=== PATIENT | male | born 1955 | race Caucasian/White ===

== ENCOUNTER → 2017-07-30 | Outpatient (CLI) | payer BC ==
--- NOTE | 2017-07-30 17:33 | Diagnostic Imaging Report ---
PROCEDURE: MRI right joint upper extremity without contrast. TECHNIQUE: Multiplanar, multisequence non contrast-enhanced MRI of the right upper extremity was accomplished. INDICATION: Fall. FINDINGS: There is no os acromiale or Hill-Sachs deformity. The acromion has a laterally downsloping configuration. There is also acromioclavicular joint osteoarthritis changes with inferior osteophytes that have a minimal impression upon the myotendinous junction of the supraspinatus. There is a full-thickness tear with tendon retraction in the supraspinatus with retracted stump at about 2.5 cm from the insertion site. The infraspinatus demonstrates tendinosis with mild intrasubstance tear. No retracted or high-grade tear in the infraspinatus. The subscapular tendon demonstrates intrasubstance tear. There is no retracted or full-thickness tear. The long head of biceps tendon demonstrates a longitudinal tear within the bicipital groove. Its more proximal segment is difficult to evaluate on this exam without articular contrast. There is increased signal along the superior labrum suggestive of degeneration or tear. The muscle bulk and signal around the shoulder is preserved. IMPRESSION: 1. Full-thickness tear in the supraspinatus tendon with 2.5 cm of retraction. 2. Longitudinal tear within the long head biceps tendon within the bicipital groove level. More proximally this tendon is not well evaluated. 3. Increased signal in the superior labrum is suggested which could relate to tear or degeneration. 4. Laterally downsloping configuration of the acromion. Dictated by: Dictated on workstation # [id number]
== END ==
LOC: RAD 13:32
PROVIDERS: ATTEND Nurse Practitioner
DX: S46.011A Strain of muscle(s) and tendon(s) of the rotator cuff of right shoulder, initial encounter (principal); S46.111A Strain of muscle, fascia and tendon of long head of biceps, right arm, initial encounter; X58.XXXA Exposure to other specified factors, initial encounter; Y99.8 Other external cause status
CPT/HCPCS: 73221

== ENCOUNTER 2020-01-15 15:50 | Emergency (ER) | payer BC ==
[~2020-01-15] VITALS: Ht 180 cm; Wt 70.8 kg
--- NOTE | 2020-01-15 16:08 | ED EENT ---
History of Present Illness General Chief Complaint: Nasal Problems Stated Complaint: NOSE INJ Source: patient, RN notes reviewed Exam Limitations: no limitations History of Present Illness Date Seen by Provider: Jan 15, 2020 Time Seen by Provider: 16:00 Initial Comments This patient is a 64-year-old male that presents to the emergency department complaining of nasal pain on the bridge of his nose and right wrist pain. Patient states he fell off a horse earlier this morning. Is continuing to have pain and limited use the right wrist. Patient states he did have a nosebleed but does breathe bleeding regularly. But is tender to the bridge of the nose. Concerning possible fracture. We'll do medical evaluation treatment is needed. Timing/Duration: this morning Location: nose Associated Symptoms: No denies symptoms, No change in hearing, No cough, No drooling, No ear drainage, No facial pain/swelling, No fever, No malaise, No nasal congestion/drainage, No poor fluid intake, No poor solids intake, No sinus infection, No sore throat, No tooth pain, No voice change, No other Allergies and Home Medications Allergies Coded Allergies: No Known Drug Allergies (Unverified , 01/15/20) Patient Home Medication List Home Medication List Reviewed: Yes Review of Systems Review of Systems Constitutional: No no symptoms reported; see HPI; No chills, No diaphoresis, No dizziness, No fever, No malaise, No weakness, No weight gain, No weight loss, No other Eyes: Denies No Symptoms Reported, Denies See HPI, Denies Blindness, Denies Blurred Vision, Denies Drainage, Denies Decreased Acuity, Denies Foreign Body Sensation, Denies Inflammation, Denies Pain, Denies Photophobia, Denies Previous Injury, Denies Shadows, Denies Tunnel Vision, Denies Vision Changes, Denies Con tact Lenses, Denies Glasses, Denies Other Ears: Denies No Symptoms Reported, Denies See HPI, Denies Dizziness, Denies Pain, Denies Tinnitus, Denies Bloody Discharge, Denies Clear Discharge, Denies Purulent Discharge, Denies Serosanguinous Discharge, Denies Previous Injury, Denies Other Nose: see HPI, epistaxis, pain Mouth: denies no symptoms reported, denies see HPI, denies clots, denies loose teeth, denies pain, denies swelling, denies bloody discharge, denies clear discharge, denies purulent discharge, denies serosanguinous discharge, denies previous injury, denies other Throat: denies no symptoms reported, denies see HPI, denies pain, denies swelling, denies discharge, denies neck stiffness, denies hoarse, denies aphonia, denies muffled, denies painful swallowing, denies difficulty with fluids, denies previous injury, denies other Respiratory: No no symptoms reported, No see HPI, No cough, No dyspnea on exertion, No hemoptysis, No orthopnea, No phlegm, No short of breath, No stridor, No wheezing, No other Cardiovascular: No no symptoms reported, No see HPI, No chest pain, No edema, No Hx of Intervention, No palpitations, No syncope, No vascular heart diseas, No other Musculoskeletal: No no symptoms reported; see HPI; No back pain, No gout, No joint pain, No joint swelling, No muscle pain, No muscle stiffness, No muscle cramps, No muscle twitching, No muscle weakness, No neck pain; other (right wrist pain) Skin: No no symptoms reported, No see HPI, No change in color, No change in hair/nails, No dryness, No hx of skin cancer, No lesions, No lumps, No pruritus, No rash, No other All Other Systems Reviewed Negative Unless Noted: Yes Past Cceouku-Auspgp-Hfwwvo Hx Patient Social History Recent Foreign Travel: No Contact w/Someone Who Travel: No Physical Exam Vital Signs Vital Signs - First Documented 01/15/20 16:10 Temp 36.8 Pulse 61 Resp 18 B/P (MAP) 126/79 (95) Pulse Ox 100 Height, Weight, BMI Height: '" Weight: lbs. oz. kg; BMI Method: General Appearance: WD/WN, no apparent distress, moderate distress, severe distress, cachetic Neck: non-tender, full range of motion, supple, normal inspection Cardiovascular: normal peripheral pulses, regular rate, rhythm, no edema, no gallop, no JVD, no murmur Respiratory: chest non-tender, lungs clear, normal breath sounds, no respiratory distress, no accessory muscle use Gastrointestinal: normal bowel sounds, non tender, soft, no organomegaly, no pulsatile mass, spleenomegaly Skin: normal color, warm/dry Right wrist has posterior swelling. Decreased range of motion due to pain. Progress/Results/Core Measures Results/Orders My Orders Orders - REENA BISHOP MD Nasal Bones (01/15/20 16:05) Wrist 3 View Right (01/15/20 16:05) Vital Signs/I&O 01/15/20 16:10 Temp 36.8 Pulse 61 Resp 18 B/P (MAP) 126/79 (95) Pulse Ox 100 Progress Progress Note : Time: 16:57 Progress Note I discussed at length with Dr. Rey on-call orthopedic surgeon. We discussed patient's x-rays. Patient will be placed in a sugar tong splint for the right wrist. It fracture. Patient in follow-up with Dr. Rey or Juancarlos Bridges APN here in [place]. Patient also be referred to Dr. Salomon [facility] for nasal bone fracture. Discussed at length with patient about findings. Patient still has some mild bleeding to the naris but patient does not want us to do anything further for his nose. He states he always has nosebleeds. I did discuss with patient about underlying fracture but he states he understands and again declines any nasal packing of the further evaluation of the nose. We discussed at length with patient about his follow-up. Patient states understanding. Patient should keep wrist elevated rest ice and compression. Wear splint as instructed. Follow-up with Dr. Rey or Juancarlos Bridges [facility]N in [place] is needed. Also Dr. Salomon ENT here in [place] for nasal bone fracture. Patient states understanding. Patient per may continue with Tylenol Motrin when necessary for pain and swelling. Patient be given a prescription for hydrocodone for just a couple of days. Patient states understanding is discharged home Departure Impression Primary Impression: Fall Additional Impressions: Nasal bone fracture Distal radius fracture, right Epistaxis Disposition: 01 HOME, SELF-CARE Condition: Stable Departure-Patient Inst. Decision time for Depature: 16:59 Referrals: GEMMA SALOMON MD, KATRINA M MD (PCP/Family) Primary Care Physician GEMMA REY MD Patient Instructions: [facility] NASAL [facility]., Nosebleeds (DC), Nose Fracture (DC), Radius Fracture (DC) Add. Discharge Instructions: We discussed at length with patient about his follow-up. Patient states understanding. Patient should keep wrist elevated rest ice and compression. Wear splint as instructed. Follow-up with Dr. Rey or Juancarlos Bridges [facility] in [place] is needed. Also Dr. Salomon ENT here in [place] for nasal bone fracture. Patient states understanding. Patient per may continue with Tylenol Motrin when necessary for pain and swelling. Patient be given a prescription for hydrocodone for just a couple of days. Patient states understanding is discharged home All discharge instructions reviewed with patient and/or family. Voiced understanding. Scripts Hydrocodone/Acetaminophen (Hydrocodone-Acetamin 5-325 mg) 1 Each Tablet 1 EACH PO 6 hrs PRN for PAIN-MODERATE (5-7), #6 TAB 0 Refills Prov: REENA BISHOP MD 01/15/20 Diclofenac Sodium (Diclofenac Sodium) 75 Mg Tablet. 75 MG PO BID for 10 Days, #20 TAB 0 Refills Prov: REENA BISHOP MD 01/15/20 Diclofenac Sodium (Diclofenac Sodium) 75 Mg Tablet. 75 MG PO BID for 10 Days, #20 TAB 0 Refills Prov: REENA BISHOP MD 01/15/20 REENA BISHOP MD Jan 15, 2020 16:08
[2020-01-15] MEDS ORDERED: ATOR20TA66 (16:10)
[2020-01-15] MEDS ORDERED: CELE-63 (16:10)
[2020-01-15] MEDS ORDERED: LEVO125T6 (16:10)
--- NOTE | 2020-01-15 16:31 | Diagnostic Imaging Report ---
INDICATION: Fall, pain COMPARISON: None available TECHNIQUE: 3 radiographs of the right wrist dated 01/15/2020 FINDINGS: Comminuted recent appearing distal radial fracture is present. Very minimal posterior displacement of a fracture fragment. There is intra-articular extension to the radiocarpal joint. No additional acute fracture or dislocation. No destructive osseous process. Soft tissue swelling is noted about the wrist. No suspicious radiopaque foreign body. IMPRESSION: Acute very minimally displaced distal radial fracture with associated intra-articular extension to the radiocarpal joint as described above. Dictated by: Dictated on workstation # [id number]
--- NOTE | 2020-01-15 16:31 | Diagnostic Imaging Report ---
INDICATION: Fall with injury to nose. EXAMINATION: AP and lateral views of the nasal bones were obtained. FINDINGS: There is a linear lucency with slight angulation of the nasal bones, anteriorly, suspicious for a nondisplaced fracture. No other abnormality is seen. The sinuses are well aerated. IMPRESSION: Nondisplaced slightly angulated fracture of the nasal bones, anteriorly. Dictated by: Dictated on workstation # [id number]
--- OUTSIDE RECORDS SUMMARY | 2020-01-15 16:55 | XMS REPORT | Continuity of Care Document ---
Author Organization Unknown Address Unknown Phone Unavailable Allergies There is no data. Medications There is no data. Problems Date Dx Coded Attending Type Code Diagnosis Diagnosed By 08/22/2017 LOGAN VILLAREAL Ot S46.011A STRAIN OF MUSC/TEND THE ROTATOR CUFF OF 08/22/2017 LOGAN VILLAREAL Ot S46.111A STRAIN OF MUSC/FASC/TEND LONG HD BICEP, 08/22/2017 LOGAN VILLAREAL Ot X58.XXXA EXPOSURE TO OTHER SPECIFIED FACTORS, INI 08/22/2017 LOGAN VILLAREAL Ot Y99. 8 OTHER EXTERNAL CAUSE STATUS Procedures There is no data. Results There is no data. Encounters ACCT No. Visit Date/Time Discharge Status Pt. Type Provider Facility Loc./Unit Complaint [id number] 07/30/2017 13:32:00 017 23:59:59 CLS Outpatient LOGAN VILLAREAL [facility] RAD STRAIN OF MUSCLES AND T ENDONS IN RC RT SIDE
[2020-01-15] MEDS ORDERED: HYDR-83 PO (17:02)
[2020-01-15] MEDS ORDERED: DICL75TA2 PO (17:02)
[2020-01-15 17:25] VITALS: BP 120/70
== END 2020-01-15 17:27 | disposition home or self-care (01) ==
LOC: EDUNIT# 15:50 → ER FS 15:52
DX: S02.2XXA Fracture of nasal bones, initial encounter for closed fracture (principal); S52.501A Unspecified fracture of the lower end of right radius, initial encounter for closed fracture; V80.010A Animal-rider injured by fall from or being thrown from horse in noncollision accident, initial encounter
CPT/HCPCS: 29105; 70160; 73110

== ENCOUNTER → 2020-01-29 | Outpatient (CLI) | payer BC ==
[~2020-01-29] MED LIST: ATOR20TA66; CELE-63; DICL75TA2 PO; HYDR-83 PO; LEVO125T6
--- NOTE | 2020-01-29 11:35 | Diagnostic Imaging Report ---
INDICATION: Follow-up right wrist fracture. TIME OF EXAM 10:58 AM CORRELATION is made with prior radiograph from 01/15/2020. A distal radius fracture is again noted. There is some sclerosis and blurring of the fracture lines consistent with some healing. Intra-articular extension is again noted. Alignment is anatomic. Distal ulna as well as carpal bones are intact. IMPRESSION: Healing distal radius intra-articular fracture. Fracture lines do remain partially visible but alignment is anatomic. Dictated by: Dictated on workstation # [id number]
== END ==
LOC: RAD FS 10:49
PROVIDERS: ATTEND Nurse Practitioner
DX: S52.571D Other intraarticular fracture of lower end of right radius, subsequent encounter for closed fracture with routine healing (principal); X58.XXXD Exposure to other specified factors, subsequent encounter
CPT/HCPCS: 73110

== ENCOUNTER → 2020-02-12 | Outpatient (CLI) | payer BC ==
--- NOTE | 2020-02-12 09:11 | Diagnostic Imaging Report ---
INDICATION: Fracture of the right wrist, follow-up. Time of exam: 8:54 AM Correlation is made with prior exam from 01/29/2020. Intra-articular distal radius fracture is again noted. There is sclerosis at the fracture site. The fracture lines extending to the articular surface remain partly visible and similar to prior study. Alignment is anatomic. Distal ulna is intact. Carpus and visualized metacarpals are unremarkable. IMPRESSION: Healing distal radius intra-articular fracture. Fracture lines do remain partly visible. Dictated by: Dictated on workstation # [id number]
== END ==
LOC: RAD FS 08:42
PROVIDERS: ATTEND Nurse Practitioner
DX: S52.571D Other intraarticular fracture of lower end of right radius, subsequent encounter for closed fracture with routine healing (principal); X58.XXXD Exposure to other specified factors, subsequent encounter
CPT/HCPCS: 73110

== ENCOUNTER → 2020-06-03 | Outpatient (CLI) | payer BC ==
[~2020-06-03] MED LIST changes: +ACHD5005 PO; -HYDR-83 PO
[2020-06-03 14:20] LABS: ALANINE AMINOTRANSFERASE 27 U/L (0-55); ALKALINE PHOSPHATASE 106 U/L (40-136); BILIRUBIN,TOTAL 0.5 MG/DL (0.1-1.0); BUN/CREATININE RATIO 21; CALCIUM 9.6 MG/DL (8.5-10.1); CARBON DIOXIDE 22 MMOL/L (21-32); CHLORIDE 108 MMOL/L (98-107); CREATININE SERUM 0.99 MG/DL (0.60-1.30); GFR ESTIMATED > 60; GLUCOSE 92 MG/DL (70-105); POTASSIUM 4.4 MMOL/L (3.6-5.0); SODIUM 141 MMOL/L (135-145)
[2020-06-03 14:21] LABS: ALBUMIN 4.3 GM/DL (3.2-4.5); TOTAL PROTEIN 6.8 GM/DL (6.4-8.2)
[2020-06-03 14:35] LABS: CHOLESTEROL 183 MG/DL (< 200); HDL CHOLESTEROL 60 MG/DL (40-60); TRIGLYCERIDES 184 MG/DL (<150); VLDL CHOLESTEROL 37 MG/DL (5-40)
== END ==
LOC: LAB FS 12:22
PROVIDERS: ATTEND Family Medicine
DX: E78.5 Hyperlipidemia, unspecified (principal); E03.9 Hypothyroidism, unspecified
CPT/HCPCS: 36415; 80053; 80061; 84443

== ENCOUNTER 2020-10-14 12:49 | Emergency (ER) | payer MEDICARE, OTHER ==
[~2020-10-14] VITALS: Ht 187 cm; Wt 85.0 kg
[2020-10-14] MEDS ORDERED: morphine INJ 10 MG/ML 1ML (SYR OR VIAL) IM STA (13:16)
--- NOTE | 2020-10-14 13:24 | ED Lower Extremity ---
General Chief Complaint: Upper Extremity Stated Complaint: RT KNEE INJ Nursing Triage Note: RIGHT KNEE PAIN AFTER GETTING KICKED BY A COW THIS AM. Nursing Sepsis Screen: No Definite Risk Source: patient History of Present Illness Date Seen by Provider: Oct 14, 2020 Time Seen by Provider: 12:58 Initial Comments 65-year-old male presenting with right knee pain after being kicked by a cow just prior to arrival in the ED. He denies any other injuries. He has severe pain in the right knee and has not been able to fully extend his right leg and knee because of the pain. He had not been able to bear weight on the right leg due to the pain. He denies previous problems with his knee. He felt the knee was bent inward towards his left knee. He has diffuse pain throughout the knee. Allergies and Home Medications Allergies Coded Allergies: No Known Drug Allergies (Unverified , 01/15/20) Home Medications Diclofenac Sodium 75 Mg Tablet.dr, 75 MG PO BID Prescribed by: REENA BISHOP on 01/15/201701 Diclofenac Sodium 75 Mg Tablet.dr, 75 MG PO BID Prescribed by: REENA BISHOP on 01/15/20 170 Hydrocodone/Acetaminophen 1 Each Tablet, 1 EACH PO 6 hrs PRN for PAIN-MODERATE (5-7) Prescribed by: REENA BISHOP on 01/15/20 1702 Oxycodone HCl/Acetaminophen 1 Each Tablet, 1 EACH PO Q4H PRN for PAIN-SEVERE (8- 10) Prescribed by: ABDIAZIZ BAHENA on 10/14/20 170 Patient Home Medication List Home Medication List Reviewed: Yes Review of Systems Constitutional: No chills, No fever EENTM: no symptoms reported Respiratory: no symptoms reported Cardiovascular: no symptoms reported Gastrointestinal: no symptoms reported Genitourinary: no symptoms reported Musculoskeletal: see HPI, joint pain (right knee pain since injury) Skin: no symptoms reported Psychiatric/Neurological: Tingling (right foot since injury) Past Qevcxrk-Fxqqly-Qzibjm Hx Past Med/Social Hx: Reviewed Nursing Past Med/Soc Hx Patient Social History Alcohol Use: Denies Use Smoking Status: Never a Smoker 2nd Hand Smoke Exposure: No Recent Infectious Disease Expo: No Recent Hopitalizations: No Seasonal Allergies Seasonal Allergies: No Past Medical History Surgeries: Yes Appendectomy, Orthopedic Respiratory: No Cardiac: Yes High Cholesterol Neurological: No Genitourinary: No Gastrointestinal: No Musculoskeletal: No Endocrine: Yes Hypothyroidsim HEENT: No Cancer: No Psychosocial: No Integumentary: No Blood Disorders: No Adverse Reaction/Blood Tranf: No Physical Exam Vital Signs Vital Signs - First Documented 10/14/20 13:06 Temp 36.1 Pulse 57 Resp 18 B/P (MAP) 100/64 (76) Pulse Ox 99 O2 Delivery Room Air Capillary Refill : Less Than 3 Seconds Height, Weight, BMI Height: '" Weight: lbs. oz. kg; 24.00 BMI Method: General Appearance: WD/WN, moderate distress Cardiovascular: normal peripheral pulses, regular rate, rhythm Respiratory: chest non-tender, lungs clear, normal breath sounds Knees: right knee joint effusion, right knee pain, right knee soft tissue tenderness, right knee swelling (mild), right knee other (pain with palpation and attempted movement of the right knee. Unable to fully evaluate for anterior and posterior drawer sign, MCL or LCL laxity due to patient pain and tensing his leg) Neurologic/Tendon: normal sensation (intact sensation to light touch on both feet. ), normal motor functions Neurologic/Psychiatric: alert, oriented x 3 Skin: normal color, warm/dry Progress/Results/Core Measures Results/Orders My Orders Orders - ABDIAZIZ BAHENA MD Morphine Injection (Morphine Injection (10/14/20 13:16) Ice: Apply To Affected Area (10/14/20 13:16) Elevate Affected Extremity (10/14/20 13:16) Knee 3 View Right (10/14/20 13:16) Ct Extremity Lower Right Wo (10/14/20 14:19) Vital Signs/I&O 10/14/20 10/14/20 13:06 16:48 Temp 36.1 36.5 Pulse 57 82 Resp 18 18 B/P (MAP) 100/64 (76) 112/62 Pulse Ox 99 99 O2 Delivery Room Air Room Air Blood Pressure Mean: 76 Progress Progress Note #1: Progress Note ice and elevate knee. Morphine 4 mg IM for pain. Obtain xrays to evaluate the knee but advised pt he may need MRI to look at soft tissue. Progress Note #2: Time: 13:54 Progress Note xrays show tibial plateau fracture of right knee with extension into the joint. Pt reports pain improved after shot. Advised that I need to check with Orthopedics about management and follow up to see who he would like to see and follow up with and he stated he had seen Dr. Rey in the past so would prefer him if possible. Advised he may need a CT scan for further details of his fracture, especially since he can not tolerate moving his knee. [address] Rey. 1414 call placed to clinic for Dr. Rey to see if he was around or if could check with PA or DIRECTOR OF COMMUNITY EDUCATION about the patient. Advised by clinic that Dr. Rey is not available until at least Sunday and his assistants have left the clinic and are not forestry contractor so the clinic would not contact them. 1417 d/w Dr. Tabares for orthopedics forestry contractor at [facility]. He advised that he does not manage Tibial Plateau fractures and would recommend the pt be seen or referred to Orthopedic Traum physician. He also said the CT scan would be necessary for finer detail of the fracture. Updated pt of plan to get CT and check to see from a Trauma standpoint if he had a preference for provider group to call. From a trauma stand point it would usually involve calling [facility] or in [facility], which is [id number] out of [facility], or [facility]. He wanted to check with his and would let me know on who to try calling. Progress Note #3: Time: 15:[address] scan done and shows depression of lateral segment of fracture by 3 mm and m edial segment by 2 mm. Pt had checked with his and they wanted to try [id number] first. I called and spoke with Dr. Archibald the forestry contractor provider for the group and he states that he also does not manage tibial plateau fractures, similar to Dr. Tabares. 1546 call placed to [facility] to check with orthopedics about possible management/care of the fracture. Dr. Osorio was the forestry contractor doctor and wanted to review the images so the CT scan images were clouded to [facility] for his review. Progress Note #4: Time: 16:[address] Osorio called back and stated that pt needed to be in knee immobilizer, crutches for non weight bearing, pain control, ice, rest, elevation. Call clinic to set up appointment for Sunday. Updated pt on plan and discharge with percocet and plan as above. Given phone number for Dr. Osorio for follow up. Diagnostic Imaging Diagonstic Imaging: Xray Plain Films/CT/US/NM/MRI: knee Comments NAME: KIMBERLY ESPINAL MED REC#: [id number] PT STATUS: REG ER : 1955 PHYSICIAN: ABDIAZIZ BAHENA MD ADMIT DATE: 10/14/20/ER FS Draft Date of Exam:10/14/20 KNEE 3 VIEW RIGHT INDICATION: Right knee injury. AP, oblique and lateral views of the right knee are obtained. Study is somewhat limited due to positioning. There are fractures in the proximal tibia which involved both medial and lateral tibial plateaus. There is at least mild depression of the lateral tibial plateau articular surface. There is irregularity along the upper medial aspect of the medial femoral condyle which could represent avulsion injury of indeterminate age. Hemarthrosis is present. IMPRESSION: Medial and lateral tibial plateau fractures. There is intra-articular extension and depression of the lateral tibial plateau. Cross-sectional imaging may be of use for further characterization. Hemarthrosis and probable proximal medial collateral ligamentous insertion injury of indeterminate age. Dictated on workstation # [id number] Dict: 10/14/20 1340 Trans: 10/14/20 1343 [facility] [id number] Interpreted by: MAGALIE GUTIÉRREZ MD Electronically signed by: Diagonstic Imaging: CT Plain Films/CT/US/NM/MRI: knee Comments NAME: KIMBERLY ESPINAL MED REC#: [id number] PT STATUS: REG ER : 1955 PHYSICIAN: ABDIAZIZ BAHENA MD ADMIT DATE: 10/14/20/ER FS Draft Date of Exam:10/14/20 CT EXTREMITY LOWER RIGHT WO PROCEDURE: CT right lower extremity without contrast. TECHNIQUE: Axially acquired CT was obtained through the right lower extremity without intravenous contrast. Coronal and sagittal reformations were also performed. Auto Exposure Controls were utilized during the CT exam to meet ALARA standards for radiation dose reduction. INDICATION: Right knee pain and swelling after trauma. COMPARISON: Radiographs from the same day. FINDINGS: There is a comminuted fracture of the proximal right tibia which extends vertically in the coronal plane in the medial tibia down to the posterior metaphyseal cortex, as well as across the midline through the intercondylar eminence and into the posterior aspect of the lateral tibial plateau. There is mild depression at the posterior aspect of the lateral tibial plateau measuring 3 mm. There is about 2 mm of offset at the medial tibial plateau as well. There are small well-corticated joint bodies present. There is a large lipohemarthrosis. Alignment otherwise appears normal. There appears to be a small impaction injury at the fibular head. The menisci and ligaments are not well evaluated by CT, but no entrapment is seen. No focal muscular atrophy is seen. There is a moderate-sized Salomon's cyst. IMPRESSION: 1. Mildly displaced minimally depressed comminuted fracture across the posterior aspect of the medial and lateral proximal right tibia. 2. Small impaction injury of the fibular head. 3. Large lipohemarthrosis. Dictated on workstation # [id number] Dict: 10/14/20 1509 Trans: 10/14/20 1525 [facility] [id number] Interpreted by: REAGAN FRAGA MD Electronically signed by: Departure Impression Primary Impression: Closed fracture of medial portion of right tibial plateau Qualified Codes: S82.131A - Displaced fracture of medial condyle of right tibia, initial encounter for closed fracture Additional Impressions: Contusion of right knee, initial encounter Traumatic injury of knee Closed fracture of lateral portion of right tibial plateau Qualified Codes: S82.121A - Displaced fracture of lateral condyle of right tibia, initial encounter for closed fracture Traumatic hemarthrosis of right knee Disposition: HOME, SELF-CARE Condition: Stable Departure-Patient Inst. Decision time for Depature: 16:45 Referrals: BRAYDON HURTADO MD (PCP/Family) Primary Care Physician Patient Instructions: How to Use Crutches, Knee Immobilizer (DC), Knee Pain ED, Tibial Plateau Fracture (DC) Add. Discharge Instructions: Call to schedule an appointment to see Dr. Eliot Osorio with Orthopedics from [facility]. His phone number is [phone]. He wants to see you Sunday about the Tibial Plateau fracture on your right knee. In the meantime, rest, elevate and ice your knee to help with pain and swelling. Use the knee immobilizer at all times to help stabilize your knee. Crutches for non weight bearing on the right leg. Consider taking Miralax or laxative to help keep your stools soft and regular while you are taking narcotic pain medicine. All discharge instructions reviewed with patient and/or family. Voiced understanding. Scripts Oxycodone HCl/Acetaminophen (Oxycodone-Acetaminophen 5-325) 1 Each Tablet 1 EACH PO Q4H PRN for PAIN-SEVERE (8-10) MDD 6 for 5 Days, #30 TAB 0 Refills Prov: ABDIAZIZ BAHENA MD 10/14/20 Work/School Note: Work Release Form Date Seen in the Emergency Department: Oct 14, 2020 Return to Work: Oct 20, 2020 Restrictions: Need Release from Doctor Other Restrictions Listed Below: Restrictions per Orthopedics. NonWeight bearing, splint right knee,crutches ABDIAZIZ BAHENA MD Oct 14, 2020 13:24
--- NOTE | 2020-10-14 13:44 | Diagnostic Imaging Report ---
INDICATION: Right knee injury. AP, oblique and lateral views of the right knee are obtained. Study is somewhat limited due to positioning. There are fractures in the proximal tibia which involved both medial and lateral tibial plateaus. There is at least mild depression of the lateral tibial plateau articular surface. There is irregularity along the upper medial aspect of the medial femoral condyle which could represent avulsion injury of indeterminate age. Hemarthrosis is present. IMPRESSION: Medial and lateral tibial plateau fractures. There is intra-articular extension and depression of the lateral tibial plateau. Cross-sectional imaging may be of use for further characterization. Hemarthrosis and probable proximal medial collateral ligamentous insertion injury of indeterminate age. Dictated by: Dictated on workstation # [id number]
--- NOTE | 2020-10-14 15:26 | Diagnostic Imaging Report ---
PROCEDURE: CT right lower extremity without contrast. TECHNIQUE: Axially acquired CT was obtained through the right lower extremity without intravenous contrast. Coronal and sagittal reformations were also performed. Auto Exposure Controls were utilized during the CT exam to meet ALARA standards for radiation dose reduction. INDICATION: Right knee pain and swelling after trauma. COMPARISON: Radiographs from the same day. FINDINGS: There is a comminuted fracture of the proximal right tibia which extends vertically in the coronal plane in the medial tibia down to the posterior metaphyseal cortex, as well as across the midline through the intercondylar eminence and into the posterior aspect of the lateral tibial plateau. There is mild depression at the posterior aspect of the lateral tibial plateau measuring 3 mm. There is about 2 mm of offset at the medial tibial plateau as well. There are small well-corticated joint bodies present. There is a large lipohemarthrosis. Alignment otherwise appears normal. There appears to be a small impaction injury at the fibular head. The menisci and ligaments are not well evaluated by CT, but no entrapment is seen. No focal muscular atrophy is seen. There is a moderate-sized Salomon's cyst. IMPRESSION: 1. Mildly displaced minimally depressed comminuted fracture across the posterior aspect of the medial and lateral proximal right tibia. 2. Small impaction injury of the fibular head. 3. Large lipohemarthrosis. Dictated by: Dictated on workstation # [id number]
--- NOTE | 2020-10-14 16:27 | NUR ---
Rocky returns call to state "We are awaiting to review fax and then will return call." Dr Monroe notified.
[2020-10-14] MEDS ORDERED: OXYC-471 PO ×2 (16:44→17:00)
[2020-10-14 16:48] VITALS: BP 112/62
== END 2020-10-14 16:50 | disposition home or self-care (01) ==
LOC: EDUNIT# 12:49 → ER FS 12:51
DX: S82.141A Displaced bicondylar fracture of right tibia, initial encounter for closed fracture (principal); M25.061 Hemarthrosis, right knee; W55.22XA Struck by cow, initial encounter
CPT/HCPCS: 73562; 73700; 99283; L1830

== ENCOUNTER → 2022-01-30 | Outpatient (CLI) | payer MEDICARE, OTHER ==
[~2022-01-30] MED LIST changes: +OXYC1TAB11 PO
[2022-01-30 16:44] LABS: BUN/CREATININE RATIO 13; CALCIUM 9.9 MG/DL (8.5-10.1); CARBON DIOXIDE 28 MMOL/L (21-32); CHLORIDE 101 MMOL/L (98-107); CREATININE SERUM 1.26 MG/DL (0.60-1.30); GFR ESTIMATED 63; GLUCOSE 81 MG/DL (70-105); SODIUM 138 MMOL/L (135-145)
[2022-01-30 16:45] LABS: ALANINE AMINOTRANSFERASE 131 U/L (0-55); ALBUMIN 4.8 GM/DL (3.2-4.5); ALKALINE PHOSPHATASE 103 U/L (40-136); BILIRUBIN,TOTAL 0.5 MG/DL (0.1-1.0); TOTAL PROTEIN 7.3 GM/DL (6.4-8.2)
== END ==
LOC: LAB FS 15:49
PROVIDERS: ATTEND Family Medicine
DX: E03.9 Hypothyroidism, unspecified (principal); R60.9 Edema, unspecified
CPT/HCPCS: 36415; 80053; 84443

== ENCOUNTER → 2022-01-31 | Outpatient (CLI) | payer MEDICARE, OTHER ==
--- NOTE | 2022-01-31 18:38 | Diagnostic Imaging Report ---
INDICATION: Bilateral upper extremity edema. Time of Exam: 3:50 PM No prior studies are available for comparison. FINDING: The heart size is normal. The pulmonary vascularity is unremarkable. The lungs are clear. No infiltrate, effusion or pneumothorax is detected. IMPRESSION: No acute cardiopulmonary process is detected. Dictated by: Dictated on workstation # [id number]
== END ==
LOC: RAD FS 15:38
PROVIDERS: ATTEND Family Medicine
DX: R60.0 Localized edema (principal)
CPT/HCPCS: 71046

== ENCOUNTER → 2022-02-07 | Outpatient (CLI) | payer MEDICARE, OTHER ==
--- NOTE | 2022-02-07 17:59 | Diagnostic Imaging Report ---
INDICATION: Elevated liver enzymes Ultrasound of the liver and right upper quadrant was performed in the routine fashion. The liver shows normal echogenicity without focal lesion. Portal vein is patent with hepatopetal flow. Hepatic veins are patent. Gallbladder is unremarkable with no stones or wall thickening. Common duct measured 5 mm. Pancreas is not well seen due to overlying gas. Aorta is also not well seen due to overlying gas. IVC appeared unremarkable. The right kidney measured 11.6 cm and appeared normal. There is no ascites. IMPRESSION: No focal liver lesion or gallbladder pathology or biliary dilatation. No abnormal finding is detected. Dictated by: Dictated on workstation # [id number]
== END ==
LOC: RAD 14:23
PROVIDERS: ATTEND Family Medicine
DX: R74.01 Elevation of levels of liver transaminase levels (principal)
CPT/HCPCS: 76705

== ENCOUNTER → 2022-02-08 | Outpatient (CLI) | payer MEDICARE, OTHER ==
[2022-02-09 01:07] LABS: FREE T4 (FREE THYROXINE) 0.76 NG/DL (0.70-1.48)
== END ==
LOC: LAB FS 15:07
PROVIDERS: ATTEND Family Medicine
DX: E03.9 Hypothyroidism, unspecified (principal)
CPT/HCPCS: 36415; 82533; 84439; 84443

== ENCOUNTER → 2022-03-27 | Outpatient (CLI) | payer MEDICARE, OTHER | LOC: LAB FS 12:17 | PROVIDERS: ATTEND Family Medicine | DX: E03.9 Hypothyroidism, unspecified (principal) | CPT/HCPCS: 36415; 84443 ==

== ENCOUNTER → 2022-05-29 | Outpatient (CLI) | payer MEDICARE, OTHER | LOC: LAB FS 07:10 | PROVIDERS: ATTEND Family Medicine | DX: E03.9 Hypothyroidism, unspecified (principal) | CPT/HCPCS: 36415; 84443 ==

== ENCOUNTER → 2022-09-26 | Outpatient (CLI) | payer MEDICARE, OTHER ==
--- NOTE | 2022-09-26 15:07 | Diagnostic Imaging Report ---
INDICATION: Right hip pain. COMPARISON: None FINDINGS: Multiple frontal and lateral radiographic views of the lumbar spine were obtained. Evaluation of static alignment shows mild dextroscoliotic deformity epicentered at L3. AP static alignment is maintained. There is no significant anteroretrolisthesis. There is no evidence of jumped facets. Vertebral body heights are maintained. There is no acute fracture. There are moderate multilevel degenerative changes consistent intervertebral disc height loss with endplate osteophyte formations. These changes are greatest at the L4-L5 level. Included small bowel loops are nondistended. IMPRESSION: 1. Moderate multilevel degenerative changes greatest L4-L5. 2. No acute fracture or dislocation. Dictated by: Dictated on workstation # [id number]
== END ==
LOC: RAD FS 13:46
PROVIDERS: ATTEND Registered Nurse Emergency
DX: M47.816 Spondylosis without myelopathy or radiculopathy, lumbar region (principal)
CPT/HCPCS: 72100